=== PATIENT | male | born 1970 | race Caucasian/White ===

== ENCOUNTER 2020-04-30 12:21 | Emergency (ER) | payer MEDICARE, MEDICAID ==
[~2020-04-30] VITALS: Ht 172.7 cm; Wt 77.3 kg
[2020-04-30] MEDS ORDERED: LIDOCAINE 1% 10 ML VIAL SQ ONE (12:45)
[2020-04-30] MEDS ORDERED: ACETAMINOPHEN 500 MG TABLET PO ONE (12:45)
[2020-04-30] MEDS ORDERED: DOXYCYCLINE HYCLATE 100 MG TABLET PO ONE (12:45)
[2020-04-30] MEDS ORDERED: BACITRACIN 0.9 GM PACKET OINTMENT TP ONE (13:15)
[2020-04-30 13:26] VITALS: BP 138/85
== END 2020-04-30 13:51 | disposition home or self-care (01) ==
LOC: EMS 12:21
DX: L02.11 Cutaneous abscess of neck (principal)
CPT/HCPCS: 10060; 99284; J3490